=== PATIENT | male | born 1995 | race African-American/Black ===

== ENCOUNTER 2023-12-13 01:55 | Emergency (ER) | payer SELFPAY ==
[2023-12-13 02:00] VITALS: BP 135/81; PULSE 54; TEMP 36.7; BMI 21.3
--- NOTE | 2023-12-13 02:10 | ED_ITS ---
HPI - Chest Pain General Chief Complaint: Chest Pain Stated Complaint: chest/cardio pain Time Seen by Provider: 12/13/23 02:06 Source: patient Mode of arrival: walk-in Limitations: no limitations History of Present Illness HPI narrative: presents complaining of acute onset of chest pain that started about one hour ago. Pain is pleuritic. No injury to his chest. Not short of breath. No fever. No nausea Related Data Home Medications ?Medication ?Instructions ?Recorded ?Confirmed No Known Home Medications 12/13/23 12/13/23 Allergies Allergy/AdvReac Type Severity Reaction Status Date / Time No Known Drug Allergies Allergy Verified 12/13/23 01:59 Review of Systems ROS Status of ROS 10 or more systems reviewed and unremark able except as noted in history and below PFSH PFSH Social History Little interest or pleasure in doing things: not at all Feeling down, depressed, or hopeless: not at all Exam Constitutional Vital Signs, click to edit/add: Last Vital Signs Temp 98.0 F 12/13/23 02:00 Pulse 54 L 12/13/23 02:00 Resp 18 12/13/23 02:00 BP 135/81 12/13/23 02:00 O2 Del Method Room Air 12/13/23 02:00 Common normals: no apparent distress, average body habitus, oriented x3, no limitations, healthy appearing, alert and well nourished [facility] Common normals: normocephalic, head/scalp atraumatic and hearing grossly normal bilaterally Eye Common normals: PERRL and EOMs intact bilaterally Chest Common normals: inspection of chest normal Respiratory Common normals: normal respiratory effort, no retractions, no use of accessory muscles and clear to auscultation bilaterally Cardio Common normals: regular rate, regular rhythm, S1 normal heart sound and S2 normal heart sound GI Common normals: Normal to inspection, nondistended, normoactive bowel sounds present, soft to palpation and non-tender Extremity Common normals: normal to inspection and full ROM Neuro Common normals: oriented x3, CN's II-XII intact bilaterally and moves all extremities Psych Appearance: grossly normal Course Vital Signs Vital signs: Vital Signs Temperature 98.0 F 12/13/23 02:00 Pulse Rate 54 L 12/13/23 02:00 Respiratory Rate 18 12/13/23 02:00 Blood Pressure 135/81 12/13/23 02:00 Oxygen Delivery Method Room Air 12/13/23 02:00 Temperature 98.0 F 12/13/23 02:00 Pulse Rate 54 L 12/13/23 02:00 Respiratory Rate 18 12/13/23 02:00 Blood Pressure 135/81 12/13/23 02:00 Oxygen Delivery Method Room Air 12/13/23 02:00 MDM - Chest Pain MDM Narrative Medical decision making narrative: patient presents with acute onset of pleuritic left sided chest pain. Neg dyspnea but avoids taking deep breath because of pain. Mild chest wall tenderness. No crepitus. cxray normal. serial troponin neg and d-dimer neg. EKG with sinus bradycardia. Pain improved after Toradol and he is now able to take a deep breath.Discharged home with working diagnosis of musculoskeletal chest pain. Discharged with a prescription of Toradol Lab Data Labs: Lab Results 12/13/23 12/13/23 Range/Units 02:05 04:15 WBC 9.7 (4.0-11.0) 10^3/uL RBC 4.17 L (4.70-6.10) 10^6/uL Hgb 14.0 (14.0-18.0) g/dL Hct 40.8 L (42.0-54.0) % MCV 97.8 H (80.0-94.0) fL MCH 33.6 (25.9-34.0) pg MCHC 34.3 (29.9-35.2) g/dL RDW 12.8 (11.0-15.0) % Plt Count 286 (150-450) 10^3/uL MPV 9.0 L (9.5-13.5) fL Neut % (Auto) 52.5 (43.0-75.0) % Lymph % (Auto) 37.1 (20.5-60.0) % Miller % (Auto) 8.5 (1.7-12.0) % Eos % (Auto) 1.6 (0.9-7.0) % Baso % (Auto) 0.1 L (0.2-2.0) % Neut # (Auto) 5.1 (1.4-6.5) 10^3/uL Lymph # (Auto) 3.6 (1.2-3.8) 10^3/uL Miller # (Auto) 0.8 (0.3-0.8) 10^3/uL Eos # (Auto) 0.2 (0.0-0.7) 10^3/uL Baso # (Auto) 0.0 (0.0-0.1) 10^3/uL Abs Immat Gran (auto) 0.02 (0.00-0.03) 10^3/uL Imm/Tot Granulo (auto) 0.2 (0.0-0.5) % D-Dimer <0.19 (<=0.59) mg/L FEU Sodium 141 (136-145) mmol/L Potassium 3.4 L (3.5-5.1) mmol/L Chloride 104 (98-107) mmol/L Carbon Dioxide 28.3 (21.0-32.0) mmol/L Anion Gap 12.1 BUN 15.0 (7.0-18.0) mg/dL Creatinine 1.24 (0.70-1.30) mg/dL Est GFR ( Amer) >60 (>=60 mL/min/1.73m^2) Est GFR (Non-Af Amer) >60 (>=60 mL/min/1.73m^2) BUN/Creatinine Ratio 12.1 Glucose 94 (74-106) mg/dL Calcium 8.8 (8.5-10.1) mg/dL Troponin I High Sens 4.1 4.2 (4.0-76.1) pg/mL Discharge Plan Discharge Chief Complaint: Chest Pain Clinical Impression: Acute chest wall pain Patient Disposition: Home, Self-Care Prescriptions / Home Meds: No Action No Known Home Medications Print Language: Japanese Instructions: Chest Wall Pain (ED) Referrals: Waldemar Jones MD [Primary Care Provider] - 1 week
--- NOTE | 2023-12-13 02:11 | XR_ITS ---
The [address] [address] Patient Name: VAISHNAVI ANDERSON MRN: [id number] date: 1995 Sex: M Assigned Patient Location: ER Current Patient Location: ER Accession/Order Number: [id number] Exam Date: 12/13/2023 02:23 Report Date: 12/13/2023 04:02 At the request of: MARISEL DEJESUS Procedure: XR chest 1V EXAM: XR chest 1V HISTORY: Chest pain. COMPARISON: None. TECHNIQUE: AP erect portable chest radiograph performed. FINDINGS: The trachea is midline. The cardiomediastinal silhouette and hilar shadows are within normal limits. There is no consolidation, pleural effusion or pulmonary vascular congestion. There is no pneumothorax or osseous abnormality. XR/XR chest 1V IMPRESSION: Unremarkable AP erect portable chest radiograph. Electronically authenticated by: JIM MACK Date: 12/13/2023 04:02
--- NOTE | 2023-12-13 02:13 | ECG_ITS ---
The [facility] Test Date: 2023-12-13 Pat Name: Tal Hogan Department: Room: - Gender: Male Paste Up Artist: : 1995 Requested By: TYRONE MCGARRY Order Number: [id number] Reading MD: OSMAR BOWSER Measurements Intervals [place] Rate: 52 P: 63 RI: 186 QRS: 81 QRSD: 84 T: 65 QT: 456 QTc: 435 Interpretive Statements 1100 Sinus rhythm 2420 RSR (QR) in lead V1/V2, consistent with right ventricular conduction delay 46069 Early repolarization 9130 borderline ECG No previous ECG available for comparison Electronically Signed On 12-13-2023 23:23:43 EDT by OSMAR BOWSER
[2023-12-13 02:20] LABS: Basophils Percent Auto 0.1 % (0.2-2.0); Eosinophils Absolute Auto 0.2 10^3/uL (0.0-0.7); Eosinophils Percent Auto 1.6 % (0.9-7.0); Hematocrit 40.8 % (42.0-54.0); Immature Granulocytes Abs Auto 0.02 10^3/uL (0.00-0.03); Immature Granulocytes Pct Auto 0.2 % (0.0-0.5); Lymphocytes Absolute Auto 3.6 10^3/uL (1.2-3.8); Lymphocytes Percent Auto 37.1 % (20.5-60.0); Mean Corpuscular HGB Conc 34.3 g/dL (29.9-35.2); Mean Corpuscular Hemoglobin 33.6 pg (25.9-34.0); Mean Corpuscular Volume 97.8 fL (80.0-94.0); Monocytes Absolute Auto 0.8 10^3/uL (0.3-0.8); Monocytes Percent Auto 8.5 % (1.7-12.0); Neutrophils Absolute Auto 5.1 10^3/uL (1.4-6.5); Neutrophils Percent Auto 52.5 % (43.0-75.0); Platelet Count 286 10^3/uL (150-450); Red Blood Count 4.17 10^6/uL (4.70-6.10); Red Cell Distribution Width 12.8 % (11.0-15.0); White Blood Count 9.7 10^3/uL (4.0-11.0)
[2023-12-13 02:43] LABS: Anion Gap 12.1; BUN Creatinine Ratio 12.1; Calcium 8.8 mg/dL (8.5-10.1); Carbon Dioxide 28.3 mmol/L (21.0-32.0); Chloride 104 mmol/L (98-107); Estimated GFR (African America >60 (>=60 mL/min/1.73m^2); Estimated GFR (Non-African Ame >60 (>=60 mL/min/1.73m^2); Glucose 94 mg/dL (74-106); Potassium 3.4 mmol/L (3.5-5.1); Sodium 141 mmol/L (136-145); Troponin I High Sensitivity 4.1 pg/mL (4.0-76.1)
[2023-12-13 03:04] LABS: D Dimer <0.19 mg/L FEU (<=0.59)
[2023-12-13] MEDS: KETOROLAC TROMETHAMINE 30 MG/ML VIAL IVP (03:29)
[2023-12-13 04:36] LABS: Troponin I High Sensitivity 4.2 pg/mL (4.0-76.1)
== END 2023-12-13 05:03 | disposition home or self-care (01) ==
PROVIDERS: Emergency Provider Internal Medicine; PCP Family Medicine
DX: R07.89 Other chest pain (principal)
CPT/HCPCS: 36415; 71045; 80048; 84484; 85025; 85378; 93005; 96374; 99285; J1885

== ENCOUNTER 2024-10-22 15:11 | Outpatient (OUT) | payer MEDICARE, MEDICAID, SELFPAY ==
--- OUTSIDE RECORDS SUMMARY | 2017-02-09 07:32 | XMS_ITS | Continuity of Care Document ---
Author Organization [facility] Address [address] [place] [address] Phone Care Team Providers Care Knife Blade Polisher Name Role Phone Bran Cordero Unavailable Unavailable Procedures Procedure Date IMMUNIZATION ADMIN TDAP VACCINE >7 IM Advance Directives Directive Yes / No Effective Date File Name No Information Encounters Encounter Description Practice Location Reason(s) For Visit Diagnoses Date Provider Providers Copied on Encounter [facility], [address], [place], [id number], tel:[phone] [facility] No Information Russel Kimball. [address], [place], [id number], [place]. tel:[phone] [facility], [address] [place] [address], [id number], [place] tel:[phone] [facility] No Information Russel Kimball. [address], [place], [id number], [place]. tel:[phone] Family History Family Member Type Diagnosis Age At Onset No Information Immunizations Vaccine Date Status Comments Tdap (Boostrix) administered Source: New Immunization Record Payers Payer name Insurance type Covered democrat ID Authoriza tion(s) [place] Ad[employer] Medicaid MC [id number] Medicaid Wrap - [facility] MC [id number] [facility] Advantage Medicaid MC [id number] Medicaid Wrap - [facility] MC [id number] Social History Type Description Quantity Date Captured Comments Sex Male Smoking Status No Information Chief Complaint And Reason For Visit No Information Reason For Referral Reason For Referral No Information History Of Present Illness Encounter Date Complaint History Of Prese nt Illness No Information Functional Status Date Functional Assessmen t No Information Instructions Date Instruction Additional Infor mation No Information Assessments Type Assessment Date No Information Patient Care Teams Name Effective Dates (start - stop) Status Members No Information
--- OUTSIDE RECORDS SUMMARY | 2024-09-20 11:15 | XMS_ITS ---
Author Organization The [facility] [place] Address [address] [place] [address] Care Team Providers Care Director Of Personnel Name Role Phone Washington Jones Primary Care Provider [phone] Allergies No Known Allergies REASON FOR VISIT Presents to office alone for a work physical Medications Medication SIG (Take, Route, Frequency, Duration) Notes Start Date End Date Status Albuterol Sulfate HFA 108 (90 Base) MCG/ACT 2 puff as needed Inhalation every 4 hrs Active risperiDONE 0.5 MG 1 tablet Orally Once a day for 30 days Active Social History Tobacco Use: Social History Observation Description Date Details (start date - stop date) Current Smoker 02/13/2009 - NA Tobacco Use/Smoking Question Answer Notes Patient is a current smoker When did you start smoking? 02/13/2009 How often do you smoke cigarettes? every day How many cigarettes a day do you smoke? 11-20 AUDIT-C (Standard) Question Answer Notes Did you have a drink containing alcohol in the p ast year? No Points 0 Interpretation Negative Problems Problem Type SNOMED Code ICD Code Onset Dates Problem Status W/U Status Risk Notes Problem Well adult (402899185) Well adult (Z00.00) Active confirmed Vital Signs Weight 141.4 lbs 09/20/2024 Height 66 in 09/20/2024 Blood pressure systolic 92 mm Hg 09/21/19 25 Blood pressure diastolic 50 mm Hg 025 BMI 22.82 kg/m2 09/20/2024 Encounters Encounter Location Date Provider Diagnosis [facility] [address] [place] [address] 09/20/2024 Washington Jones Well adult Z00.0 0 Assessments Encounter Date Diagnosis (ICD Code) Assessment Notes Treatment Notes Treatment Clinical Notes Section Notes 09/20/2024 Well adult (ICD-10 - Z00.00) Plan Of Treatment Medication Medication Name Sig Start Date Stop Date Notes Albuterol Sulfate HFA 108 (9 0 Base) MCG/ACT 2 puff as needed Inhalation every 4 hrs risperiDONE 0.5 MG 1 tablet Orally Once a day for 30 days Progress Notes * Tal ANDERSON ADOB: [birth year] (29 yo M)Acc No.[id number]:09/20/2024 Progress Note Patient: Tal BUNDY Provider: Perry Jones ([facility])MD :1995 A ge:29 Y S ex:Male Date:09/20/2024 Address:[address] [place] [address] , [place], [id number] Check In:03:11 PM ESTCheck O ut:03:57 PM EST Subjective: * Chief Complaints: * P resents to office alone for a work physical * HPI: G eneral: heerfor work physical. D epression Screening: PHQ-9 L ittle interest or pleasure in doing things?Several days F eeling down, depressed, or hopeless S everal days T rouble falling or staying asleep, or sleeping too much S everal days F eeling tired or having little energy S everal days P oor appetite or overeating S everal days F eeling bad about yourself or that you are a failure, or have let yourself or your family down N ot at all T rouble concentrating on things, such as reading the newspaper or watching television N ot at all M oving or speaking so slowly that other people could have noticed; or the opposite, being so fidgety or restless that you have been moving around a lot more than usual N ot at all T houghts that you would be better off or of hurting yourself in some way N ot at all T otal Score 5 I nterpretation M ild Depression * ROS: E ENT: hearing changes d enies. v isual changes d enies.?non-healing mouth sores d enies. s wollen glands or neck lumps d enies. h oarseness d enies. s ore throat d enies. d ifficulty swallowing d enies. n ose bleeds d enies. n hyun congestion d enies. e ar ache d enies. e ar discharge?denies. r inging in ears d enies. l ight sensitivity d enies. e ye pain d enies. b lurring d enies. e ye irritation d enies. d ouble vision d enies.?vision loss d enies. G eneral/Constitutional: Sweats: D enies. F atigue d enies. S leep problems d enies. A norexia d enies. M alaise d enies. W eight loss d enies.?Fatigue or Weakness d enies. F ever or Chills d enies. C ardiovascular: Shortness of Breath w/lying flat d enies. L ightheadedness/dizziness d enies. C hest tightness/ heavy pressure d enies. S welling of legs, ankles, or feet d enies. W aking up with shortness of breath d enies. C hest pain denies. P alpitations d enies. W eight gain d enies. R espiratory: Chronic or frequent cough d enies. C oughing up blood?denies. D ifficulty breathing d enies. P roductive cough d enies. S noring?denies. S hortness of breath that awakens from sleep (PND) d enies. C hest pain d enies. S putum production d enies. W heezing d enies. M usculoskeletal: Joint pain d enies. J oint Fluid d enies. B ack pain d enies. K nee pain d enies. N guillaume pain d enies. J oint Stiffness d enies. M uscle cramps d enies. W eakness of muscles d enies. A rthritis d enies. M uscle aches d enies. P ain in shoulder(s) d enies. S wollen joints d enies. * Active Problem List F41.9 Anxiety Modified On:12/08/2022/U Status:confirmed F32.9 Depression Modified On:12/08/2022/U Status:confirmed Z00.00 Well adult Modified On:09/20/2024/U Status:confirmed * Medical History: * Surgical History: * Hospitalization/Major Diagno stic Procedure: * Family History: F ather: alive. M other: alive, anxiety, diagnosed with Diabetes mellitus without mention of complication, type II or unspecified type, not stated as uncontrolled, Unspecified essential hypertension, Anxiety. S ister(s): alive, epilepsy, diagnosed with Diabetes mellitus without mention of complication, type II or unspecified type, not stated as uncontrolled, Unspecified essential hypertension. D ryne(s): alive. 2 daughter(s) . . Patient states he has 27 siblings. * Social History: T obacco Use: T obacco Use/Smoking P atient is a c urrent smoker W hen did you start smoking? 0 02/13/2009 H ow often do you smoke cigarettes? e very day H ow many cigarettes a day do you smoke? 1 1-20 D rug/Alcohol: A JOHN-C (Standard) D id you have a drink containing alcohol in the past year? N o P oints 0 I nterpretation N egative * Medications: T akingAlbuterol Sulfate HFA 108 (90 Base) MCG/ACT Aerosol Solution 1 puff as needed Inhalation every 4 hrs risperiDONE 2 MG Tablet 1 tablet Orally Once a day Medication List reviewed and reconciled with the patientTaking Albuterol Sulfate HFA 108 (90 Base) MCG/ACT Aerosol Solution 1 puff as needed Inhalation every 4 hrs Taking risperiDONE 2 MG Tablet 1 tablet Orally Once a day Medication List reviewed and reconciled with the patient * Allergies: N .K.D.A.no[Allergies Verified] Objective: * Vitals: W t:141.4lbs, Ht: 66 in, BP:92/50mm Hg, BMI:22.82Index, Ht-cm: 167.64 cm, Wt-k.14 kg. * Examination: P hysical Exam: GENERAL: w ell developed, well nourished, in no acute distress. HEAD: n ormocephalic/atraumatic. EYES: p upils equal, round and reactive to light, conjunctivae and sclerae normal. EARS: n o deformity or lesion of external ear, canals and TM appear normal bilaterally, TM's intact, not inflamed with normal light reflex, hearing grossly normal to conversational speech. NOSE: n o deformity, discharge, inflammation, or lesions.? MOUTH: m ucous membranes moist, normal oropharynx and posterior pharynx without lesions or exudates, tongue normal, dentition normal. NECK: n guillaume supple, no masses or palpable cervical nodes, trachea midline, thyroid without nodules, masses, tenderness, or enlargement. CHEST: n o chest wall deformity, no chest wall tenderness.? LUNGS: n ormal respiratory effort and clear to auscultation, no wheezes, rales, or rhonchi, good air exchange. CARDIO: r egular rate and rhythm, normal S1 and S2, nor murmur, rub, or gallop. PULSES: n ormal capillary refill. ABDOMEN: s oft, non-distended, non-tender, no masses. MUSCULOSKELETAL: n o deformity or scoliosis noted, normal range of motion, joints normal, no erythema, edema, effusion, or ecchymosis. EXTREMITY: n o clubbing, cyanosis, edema, or deformity with normal ROM in both upper and lower bilateral extremities. NEUROLOGIC: g rossly normal. SKIN: n o rashes, ulcerations, or suspicious lesions. LYMPH NODES: n o cervical adenopathy, nodes normal. MENTAL STATUS: a lert and oriented x3, normal mood and affect. Assessment: * Assessment: 1. W [facility] adult - Z00.00 (Primary) Plan: * Treatment: * Procedure Codes: * * Sign off status: Completed Visit Status: C HK (Check Out) true * Provider: Perry Jones ([facility])MD Date: 0 09/20/2024 Generated for Jenni abdullahi/Ricardo/eTransmitting on: 0 10/22/2024 03:15 PM EDT History and Physical Notes * HPI (History of Present Illness) Category Sub-Category Detail Notes Category Not es Depression Screening PHQ-9 Little inte rest or pleasure in doing things: Several days Feeling down, depressed, or hopeless: Se veral days Trouble falling or staying asleep, or sl eeping too much: Several days Feeling tired or having little energy: S everal days Poor appetite or overeating: Several day s Feeling bad about yourself o r that you are a failure, or have let yourself or your family down: Not at all Trouble concentrating on thi ngs, such as reading the newspaper or watching television: Not at all Moving or speaking so slowly that other people could have noticed; or the opposite, being so fidgety or restless that you have been moving around a lot more than usual: Not at all Thoughts that you would be b miri off or of hurting yourself in some way: Not at all Total Score: 5 Interpretation: Mild Depression General heerfor work ph ysical Examination Category Sub-Category Detail Notes Category Not es Physical Exam GENERAL: well developed, well nourished, in no acute distress HEAD: normocephalic/atraum atic EYES: pupils equal, round and reactive to light, conjunctivae and sclerae normal EARS: no deformity or lesi on of external ear, canals and TM appear normal bilaterally, TM's intact, not inflamed with normal light reflex, hearing grossly normal to conversational speech NOSE: no deformity, discha rge, inflammation, or lesions MOUTH: mucous membranes kir[address] st, normal oropharynx and posterior pharynx without lesions or exudates, tongue normal, dentition normal NECK: neck supple, no mass es or palpable cervical nodes, trachea midline, thyroid without nodules, masses, tenderness, or enlargement CHEST: no chest wall deform ity, no chest wall tenderness LUNGS: normal respiratory e ffort and clear to auscultation, no wheezes, rales, or rhonchi, good air exchange CARDIO: regular rate and rhy thm, normal S1 and S2, nor murmur, rub, or gallop PULSES: normal capillary ref ill ABDOMEN: soft, non-distended, non-tender, no masses RECTAL: MUSCULOSKELETAL: no deformity or scol iosis noted, normal range of motion, joints normal, no erythema, edema, effusion, or ecchymosis EXTREMITY: no clubbing, cyanosi s, edema, or deformity with normal ROM in both upper and lower bilateral extremities NEUROLOGIC: grossly normal SKIN: no rashes, ulceratio ns, or suspicious lesions LYMPH NODES: no cervical adenopat hy, nodes normal MENTAL STATUS: alert and oriented x 3, normal mood and affect
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
--- OUTSIDE RECORDS SUMMARY | 2024-10-22 15:15 | XMS_ITS | Patient Health Record ---
Author Organization [facility] in [place] Address [address] [place] [address] Care Team Providers Care Internet Sales Representative Name Role Phone Washington Mcgarry Primary Care Provider [phone] Allergies No Known Allergies Results Component Value Reference Range Notes CBC AUTO DIFF Reviewed date:12/13/2023 06:33:21 PM Interpretation: Performing Lab: Notes/Report: [facility] , White Blood Count 9.7 4.0-11.0 10 3/uL Red Blood Count 4.17 4.70-6.10 10 6/uL Hemoglobin 14.0 14.0-18.0 g/dL Hematocrit 40.8 42.0-54.0 % Mean Corpuscular Volume 97.8 80.0-94.0 fL Mean Corpuscular Hemoglobin 33.6 25.9-34.0 pg Mean Corpuscular HGB Conc 34.3 29.9-35.2 g/dL Red Cell Distribution Width 12.8 11.0-15.0 % Platelet Count 286 150-450 10 3/uL Mean Platelet Volume 9.0 9.5-13.5 fL Neutrophils Percent Auto 52.5 43.0-75.0 % Lymphocytes Percent Auto 37.1 20.5-60.0 % Monocytes Percent Auto 8.5 1.7-12.0 % Eosinophils Percent Auto 1.6 0.9-7.0 % Basophils Percent Auto 0.1 0.2-2.0 % Immature Granulocytes Pct Auto 0.2 0.0-0.5 % Neutrophils Absolute Auto 5.1 1.4-6.5 10 3/uL Lymphocytes Absolute Auto 3.6 1.2-3.8 10 3/uL Monocytes Absolute Auto 0.8 0.3-0.8 10 3/uL Eosinophils Absolute Auto 0.2 0.0-0.7 10 3/uL Basophils Absolute Auto 0.0 0.0-0.1 10 3/uL Immature Granulocytes Abs Auto 0.02 0.00-0.03 10 3/uL Performing Lab: see note ML - [facility] LB D-DIMER Reviewed date:12/13/2023 06:33:21 PM Interpretation: Performing Lab: Notes/Report: [facility] , D Dimer <0.19 <=0.59 mg/L FEU Increases in D-Dimer concentration observed with thromboembolic events can be variable due to localization, size, and age of the thrombus. Therefore, a thromboembolic event cannot be diagnosed with certainty on the basis of the reference range. D-Dimers may also be elevated for a variety of disorders including advanced age, , coronary disease, cancer, liver disease, infection, inflammation, hematoma, DIC, trauma, post-surgery, diabetes, thrombolytic or anticoagulant therapy, stress, and generalized hospitalization. Performing Lab: see note ML - [facility] LB PROF CHEM 8 (BAS METB) Reviewed date:12/13/2023 06:33:21 PM Interpretation: Performing Lab: Notes/Report: [facility] , Sodium 141 136-145 mmol/L Potassium 3.4 3.5-5.1 mmol/L Chloride 104 98-107 mmol/L Carbon Dioxide 28.3 21.0-32.0 mmol/L Anion Gap 12.1 Glucose 94 74-106 mg/dL Blood Urea Nitrogen 15.0 7.0-18.0 mg/dL Creatinine 1.24 0.70-1.30 mg/dL Estimated GFR ( Eri >60 >=60 mL/min/1.73m 2 Estimated GFR (Non- Nila >60 >=60 mL/min/1.73m 2 BUN Creatinine Ratio 12.1 Calcium 8.8 8.5-10.1 mg/dL Performing Lab: see note ML - [facility] Troponin I High Sensitivity Reviewed date:12/13/2023 06:33:21 PM Interpretation: Performing Lab: Notes/Report: [facility] , Troponin I High Sensitivity 4.1 4.0-76.1 pg/mL CUT-OFF POINTS HAVE BEEN ESTABLISHED BASED ON THE FOURTH UNIVERSAL DEFINITION OF MYOCARDIAL INFARCTION. THE UPPER REFERENCE LIMIT (URL) OF TROPONIN, DEFINED THE 99TH PERCENTILE OF cTnI DISTRIBUTION IN A REFERENCE POPULATION, HAS BEEN CONFIRMED THE DECISION THRESHOLD FOR AR DIAGNOSIS. 99TH PERCENTILE = 76.2 PG/ML NOTE: HIGH-SENSITIVITY TROPONIN ASSAY IS NOT INTENDED TO BE USED IN ISOLATION BUT SHOULD BE INTERPRETED IN CONJUNCTION WITH OTHER DIAGNOSTIC AND CLINICAL INFORMATION. Performing Lab: see note ML - [facility] LB ECG 12 lead Reviewed date:12/14/2023 08:42:26 PM Interpretation: Performing Lab: Notes/Report: Source Facility: [place] [address] [place] [address] Electrocardiograph Report Signed Patient: TAL ANDESRON MR#: [id number] : 1995 Acct:[id number] Age/Sex: 28 / M ADM Date: 12/13/23 Loc: ER Attending Dr: Ordering Physician: Rc Dejesus Date of Service: 12/13/23 Procedure(s): ECG 12 lead Accession Number(s): [id number] cc: [facility] Test Date: 2023-12-13 Pat Name: Tal Anderson Department: Room: - Gender: Male Distillation Operator: : 1995 Requested By: TYRONE MCGARRY Order Number: [id number] Reading MD: RAMOS BOWSER Measurements Intervals Mineral Rate: 52 P: 63 [place]: 186 QRS: 81 QRSD: 84 T: 65 QT: 456 QTc: 435 Interpretive Statements 1100 Sinus rhythm 2420 RSR (QR) in lead V1/V2, consistent with right ventricular conduction delay 45229 Early repolarization 9130 borderline ECG No previous ECG available for comparison Electronically Signed On 12-13-2023 23:23:43 EDT by RAMOS BOWSER Dictated By: Ramos Bowser D.O. Signed By: 12/13/236 DD/ 0202 TD/TT: [facility]: [place] [address] Electrocardiograph Report Signed Patient: JAIRO ANDERSON MR#: [id number] : 1995 Acct:[id number] Age/Sex: 28 / M ADM Date: 12/13/23 Loc: ER Attending Dr: Ordering Physician: Rc Dejesus Date of Service: 12/13/23 Procedure(s): ECG 12 lead Accession Number(s): [id number] cc: [facility] Test Date: 2023-12-13 Pat Name: Tal mccurdy Department: 65 Room: - Gender: Male Distillation Operator: : 1995 Requ ested By: TYRONE MCGARRY Order Number: [id number] Reading MD: RAMOS BOWSER Measurements Intervals Mineral Rate: 52 P: 63 AZ: 186 QRS: 81 QRSD: 84 T: 65 QT: 456 QTc: 435 Interpretive Statements 1100 Sinus rhythm 2420 RSR (QR) in rissa d V1/V2, consistent with right ventricular conduction delay 98433 Early repolarization 9130 borderline ECG No previous ECG avai lable for comparison Electronically Cat d On 12-13-2023 23:23:43 EDT by RAMOS BOWSER Dictated By: Ramos Bowser D.O. Signed By: 12/13/23 232 DD/ 0202 TD/TT: [facility]: SKY chest 1V Reviewed date:12/13/2023 06:33:21 PM Interpretation: Performing Lab: Notes/Report: Source Facility: [place] [address] XRay Report Signed Patient: Tal Anderson MR#: [id number] : 1995 Acct:[id number] Age/Sex: 28 / M ADM Date: 12/13/23 Loc: ER Attending Dr: Ordering Physician: Rc Dejesus Date of Service: 12/13/23 Procedure(s): XR chest 1V Accession Number(s): [id number] cc: Tyrone Bliss M.D. [place] [address] Patient Name: TAL ANDERSON MRN: [facility]:[id number] date: 1995 Sex: M Assigned Patient Location: ER Current Patient Location: ER Accession/Order Number: [id number] Exam Date: 12/13/2023 02:23 Report Date: 12/13/2023 04:02 At the request of: RC DEJESUS Procedure: XR chest 1V EXAM: XR chest 1V HISTORY: Chest pain. COMPARISON: None. TECHNIQUE: AP erect portable chest radiograph performed. FINDINGS: The trachea is midline. The cardiomediastinal silhouette and hilar shadows are within normal limits. There is no consolidation, pleural effusion or pulmonary vascular congestion. There is no pneumothorax or osseous abnormality. XR/XR chest 1V IMPRESSION: Unremarkable AP erect portable chest radiograph. Electronically authenticated by: JIM COTTER Date: 12/13/2023 04:02 Dictated By: Jim Cotter M.D. Signed By: 12/13/23403 DD/ 1 TD/TT: [facility]: [place] [address] XRay Report Signed Patient: Jairo Anderson MR#: [id number] : 1995 Acct:[id number] Age/Sex: 28 / M ADM Date: 12/13/23 Loc: ER Attending Dr: Ordering Physician: Rc Dejesus Date of Service: 12/13/23 Procedure(s): XR chest 1V Accession Number(s): [id number] cc: Rc Dejesus; Tyrone Mcgarry M.D. [facility] [place] [id number] Patient Name: TAL ANDERSON MRN: [id number] date: 1995 Sex: M Assigned Patient Location: ER Current Patient Loca tion: ER Accession/Order Numb er: [id number] Exam Date: 02:23 Report Date: 12/13/2023 04:02 At the request of: RC DEJESUS Procedure: XR chest 1V EXAM: XR chest 1V HISTORY: Chest pain. COMPARISON: None. TECHNIQUE: AP erect portable chest radiograph performed. FINDINGS: The trachea is midli ne. The cardiomediastinal silhouette and hilar shadows are within normal limits . There is no consolidation, pleural effusion or pulmonary vascular congestion. There is no pneumothorax or osseous abnormality. X R/XR chest 1V IMPRESSION: Unremarkable AP erec t portable chest radiograph. Electronically authenticated by: JIM COTTER Date: 12/13/2023 04:02 Dictated By: Jim Cotter M.D. Signed By: 12/13/23403 DD/ 1 TD/TT: [facility]: Troponin I High Sensitivity Reviewed date:12/13/2023 06:33:21 PM Interpretation: Performing Lab: Notes/Report: [facility] , Troponin I High Sensitivity 4.2 4.0-76.1 pg/mL CUT-OFF POINTS HAVE BEEN ESTABLISHED BASED ON THE FOURTH UNIVERSAL DEFINITION OF MYOCARDIAL INFARCTION. THE UPPER REFERENCE LIMIT (URL) OF TROPONIN, DEFINED THE 99TH PERCENTILE OF cTnI DISTRIBUTION IN A REFERENCE POPULATION, HAS BEEN CONFIRMED THE DECISION THRESHOLD FOR AR DIAGNOSIS. 99TH PERCENTILE = 76.2 PG/ML NOTE: HIGH-SENSITIVITY TROPONIN ASSAY IS NOT INTENDED TO BE USED IN ISOLATION BUT SHOULD BE INTERPRETED IN CONJUNCTION WITH OTHER DIAGNOSTIC AND CLINICAL INFORMATION. Performing Lab: see note ML - [facility] LB Reason For Referral No Information Medications Medication SIG (Take, Route, Frequency, Duration) [...] cigarettes a day do you smoke? 11-20 Alcohol Screen (Audit-C) Question Answer Notes Did you have a drink contain ing alcohol in the past year? Yes How many drinks did you have on a typical day when you were drinking in the past year? 3 or 4 drinks (1 point) How often did you have a dri nk containing alcohol in the past year? Daily or almost daily (4 points) Points 5 Interpretation Positive AUDIT-C (Standard) Question Answer Notes Did you have a drink containing alcohol in the p ast year? No Points 0 Interpretation Negative Problems Problem Type SNOMED Code ICD Code Onset Dates Problem Status W/U Status Risk Notes Problem Anxiety (37788557) Anxiety (F41.9) Active confirmed Problem Depression (909571939) Depression (F32.9) Active confirmed Problem Well adult (123411305) Well adult (Z00.00) Active confirmed Problem Pain in wrist (23480823) Wrist pain, acute, left (M25.532) Active confirmed Vital Signs Temperature 98.2 degrees Fahrenheit 10/22/2024 Blood pressure diastolic 60 mm Hg 10/22/2024 Height 66 in 10/22/2024 Blood pressure systolic 104 mm Hg 10/22/2024 Weight 136 lbs 10/22/2024 BMI 21.95 kg/m2 10/22/2024 Encounters Encounter Location Date Provider Diagnosis [facility] [address] [place] [address] 09/20/2024 Washington Hoy Well adult Z00.00 [facility] [address] [place] [address] 10/22/2024 [place] Hoy Wrist pain, acute, left M25.532 Assessments Encounter Date Diagnosis (ICD Code) Assessment Notes Treatment Notes Treatment Clinical Notes Section Notes 09/20/2024 Well adult (ICD-10 - Z00.00) 10/22/2024 Wrist pain, acute, left (ICD-10 - M25.532) Plan Of Treatment Pending Test Test Name Order Date XR ELBOW 1-2 VIEWS LEFT 10/22/2024 XR wrist LT min 3V 10/22/2024 XR RADIUS ULNA LEFT (2 VIEWS) 10/22/2024 Insurance Providers Payer Name Payer Address Payer Phone Subscriber Number Group Number Insured Name Patient Relationship to Insured Coverage Start Date Coverage End Date [employer] [place] [employer] [address] [address] [place] [phone] [id number] Tal Anderson Self - patient is the insured Medical (General) History Medical History History ICD Code Testicular mass N50.89 Black stool K92.1 Other acute pancreatitis with uninfected necrosis K85.81 Acute internal derangement of right knee M23.91 Suicidal thoughts R45.851 Bipolar 1 disorder F31.9 Gastritis K29.70 Asperger syndrome F84.5 ADHD F90.9 Eczema L30.9 Insomnia G47.00
--- NOTE | 2024-10-22 15:22 | XR_ITS ---
The [place] [id number] Patient Name: VAISHNAVI ANDERSON MRN: [id number] date: 1995 Sex: M Assigned Patient Location: RAD Current Patient Location: [facility] Accession/Order Number: [id number] Exam Date: 10/22/2024 15:25 Report Date: 10/22/2024 22:31 At the request of: TYRONE MCGARRY MD Procedure: XR elbow LT min 3V 2 VIEWS LEFT FOREARM/3 VIEWS LEFT WRIST AND 3 VIEWS LEFT ELBOW CLINICAL HISTORY: Acute Left Wrist Pain COMPARISON: None FINDINGS: No fracture or dislocation. Joint spaces preserved. Soft tissues unremarkable. XR/XR wrist LT min 3V IMPRESSION: NO ACUTE OSSEOUS FINDINGS. Impression dictated by: Aston Calhoun M.D. 10/22/2024 10:31 PM Dictation Location: [place] [address] Electronically authenticated by: [id number] Y Date: 10/22/2024 22:31
--- NOTE | 2024-10-22 15:22 | XR_ITS ---
The [place] [id number] Patient Name: VAISHNAVI ANDERSON MRN: [id number] date: 1995 Sex: M Assigned Patient Location: RAD Current Patient Location: [facility] Accession/Order Number: [id number] Exam Date: 10/22/2024 15:25 Report Date: 10/22/2024 22:31 At the request of: TYRONE MCGARRY MD Procedure: XR elbow LT min 3V 2 VIEWS LEFT FOREARM/3 VIEWS LEFT WRIST AND 3 VIEWS LEFT ELBOW CLINICAL HISTORY: Acute Left Wrist Pain COMPARISON: None FINDINGS: No fracture or dislocation. Joint spaces preserved. Soft tissues unremarkable. XR/XR forearm LT 2V IMPRESSION: NO ACUTE OSSEOUS FINDINGS. Impression dictated by: Aston Calhoun M.D. 10/22/2024 10:31 PM Dictation Location: [place] [address] Electronically authenticated by: [id number] Y Date: 10/22/2024 22:31
--- NOTE | 2024-10-22 15:22 | XR_ITS ---
The [place] [id number] Patient Name: VAISHNAVI ANDERSON MRN: [id number] date: 1995 Sex: M Assigned Patient Location: RAD Current Patient Location: [facility] Accession/Order Number: [id number] Exam Date: 10/22/2024 15:25 Report Date: 10/22/2024 22:31 At the request of: TYRONE MCGARRY MD Procedure: XR elbow LT min 3V 2 VIEWS LEFT FOREARM/3 VIEWS LEFT WRIST AND 3 VIEWS LEFT ELBOW CLINICAL HISTORY: Acute Left Wrist Pain COMPARISON: None FINDINGS: No fracture or dislocation. Joint spaces preserved. Soft tissues unremarkable. XR/XR elbow LT min 3V IMPRESSION: NO ACUTE OSSEOUS FINDINGS. Impression dictated by: Aston Calhoun M.D. 10/22/2024 10:31 PM Dictation Location: [place] [address] Electronically authenticated by: [id number] Y Date: 10/22/2024 22:31
--- OUTSIDE RECORDS SUMMARY | 2024-10-22 15:24 | XMS_ITS | CCD ---
Author Organization [facility] Care Team Providers Care Manager Child Name Role Phone Tyrone Mcgarry Primary Care Physician QI MEDINA Admitting Unavailable QI MEDINA Attending Unavailable QI MEDINA Consulting Unavailable ZEFERINO, DR HANSEN Primary Care Unavailable ZEFERINO, DR HANSEN Admitting Unavailable ZEFERINO, DR HANSEN Attending Unavailable ZEFERINO, DR HANSEN Consulting Unavailable ZEFERINO, DR HANSEN Primary Care Unavailable YUN MARK Consulting Unavailable ZEFERINO, DR HANSEN Admitting Unavailable ZEFERINO, DR HANSEN Attending Unavailable ZEFERINO, DR HANSEN Consulting Unavailable ZEFERINO, DR HANSEN Primary Care Unavailable ZEFERINO, DR HANSEN Primary Care Unavailable MARISEL DEJESUS Admitting Unavailable MARISEL DEJESUS Attending Unavailable MARISEL DEJESUS Consulting Unavailable MEGHANN VELASQUEZ Consulting Unavailable Qi Zafar Unavailable Allergies Allergy Classification Reported Allergen(s) Allergy Type Date of Onset Reaction(s) Facility (1 source) risperiDONE Drug Allergy 03-20-2015 [facility] Medications Current Medications Medication Drug Class(es) Dates Sig (Normalized) Sig (Original) Albuterol (1 source) beta2-Adrenergic Agonist Albuter ol Active risperiDONE (1 source) Atypical Antipsychotic risperiDO NE Active Problems Active Problems Problem Classification Problem Date Documented Da te Episodic/Chronic Abdominal pain (6 sources) Left lower quadrant pain; Translations: [Left lower quadrant pain] Onset: 2 Episodic Asthma (1 source) Unspecified asthma, uncomplicated; Translations: [UNSPECIFIED ASTHMA UNCOMPLICATED] Onset: 2 Chronic Esophageal disorders (1 source) Gastroesophageal reflux disease; Translations: [Gastro-esophageal reflux disease without esophagitis] Chronic Gastritis and duodenitis (2 sources) Viral gastritis; Translations: [Gastritis, unspecified, without bleeding] Episodic Gastrointestinal hemorrhage (1 source) Black feces; Translations: [Melena] Episodic Intracranial injury (1 source) Personal history of traumatic brain injury; Translations: [PERSONAL HX TRAUMATIC BRAIN INJURY] Onset: 2 Episodic Nausea and vomiting (1 source) Nausea and vomiting; Translations: [Nausea with vomiting, unspecified] Episodic Other diseases of veins and lymphatics (1 source) Varicocele 07-06-2021 Episodic Other gastrointestinal disorders (1 source) Constipation alternates with diarrhea; Translations: [Other specified symptoms and signs involving the digestive system and abdomen] Episodic Other male genital disorders (2 sources) Cyst of testis; Translations: [Benign cyst of testis] Onset: 2 Episodic Other nutritional; endocrine; and metabolic disorders (1 source) Body mass index 25-29 - overweight; Translations: [Body mass index (BMI) 26.0-26.9, adult] Episodic Other nutritional; endocrine; and metabolic disorders (1 source) Weight loss; Translations: [Abnormal weight loss] Episodic Substance-related disorders (1 source) Nicotine dependence, cigarettes, uncomplicated; Translations: [NICOTINE DEPEND CIGARETTES UNCOMP] Onset: 2 Chronic Unclassified (3 sources) CONTACT W/AND (SUSP) EXPOS COVID-19; Translations: [CONTACT W/AND (SUSP) EXPOS COVID-19] Onset: 2 Past or Other Problems Problem Classification Problem Date Documented Da te Episodic/Chronic Other diseases of veins and lymphatics (1 source) Scrotal varices; Translations: [SCROTAL VARICES] Onset: 05-18-2021 Episodic Other male genital disorders (4 sources) Disorder of male genital organs, unspecified; Translations: [DISORDER MALE GENITAL ORGANS UNS] Onset: 05-18-2021 Episodic Other male genital disorders (4 sources) Other specified disorders of the male genital organs; Translations: [OTHER SPEC D/O MALE GENITAL ORGANS] Onset: 05-14-2021 Episodic Other male genital disorders (1 source) Benign cyst of testis; Translations: [BENIGN CYST OF TESTIS] Onset: 05-18-2021 Episodic Unclassified (1 source) CONTACT W/AND (SUSP) EXPOS COVID-19; Translations: [CONTACT W/AND (SUSP) EXPOS COVID-19] Onset: 06-23-2021 Unclassified (1 source) Contact with and (suspected) exposure to covid-19 Z20.822 Results Test Name Value Interpretation Reference Range Facility COVID Quick Testingon 2022 Result Negative [facility] Other AMYLASEon 01-16-2022 Amylase [Catalytic activity/Vol] 79 U/L Normal 25-115 [facility] Comment on above: Performed By: #### LIPA, CMP, KASANDRA #### [facility] [address] [place] [address] Dr. Vladimir Betts CBC AUTO DIFFon 01-16-2022 BASO # 0.0 103/ul Normal 0.0-0.1 [facility] Comment on above: Performed By: #### CBC #### [facility] [address] [place] [address] Dr. Vladimir Betts Basophils/100 WBC (Bld) 0.2 % Normal 0.2-2.0 [facility] Comment on above: Performed By: #### CBC #### [facility] [address] [place] [address] Dr. Vladimir Betts EO # 0.2 103/ul Normal 0.0-0.7 [facility] Comment on above: Performed By: #### CBC #### [facility] [address] [place] [address] Dr. Vladimir Betts Eosinophils/100 WBC (Bld) 1.6 % Normal 0.9-7.0 [facility] Comment on above: Performed By: #### CBC #### [facility] [address] [place] [address] Dr. Vladimir Betts Erythrocyte distribution width (RBC) [Ratio] 12.9 % Normal 11.0-15.0 [facility] Comment on above: Performed By: #### CBC #### [facility] [address] [place] [address] Dr. Vladimir Betts Hematocrit (Bld) [Volume fraction] 41.9 % Critically low 42.0-54.0 [facility] Comment on above: Performed By: #### CBC #### [facility] [address] [place] [address] Dr. Vladimir Betts Hemoglobin (Bld) [Mass/Vol] 15.0 g/dL Normal 14.0-18.0 [facility] Comment on above: Performed By: #### CBC #### [facility] [address] [place] [address] Dr. Vladimir Betts IG # 0.04 10e3/ul Critically high 0.00-0.03 [facility] Comment on above: Performed By: #### CBC #### [facility] [address] [place] [address] Dr. Vladimir Betts IG % 0.3 % Normal 0.0-0.5 [facility] Comment on above: Performed By: #### CBC #### [facility] [address] [place] [address] Dr. Vladimir Betts LYMPH # 2.7 103/ul Normal 1.2-3.8 [facility] Comment on above: Performed By: #### CBC #### [facility] [address] [place] [address] Dr. Vladimir Betts Lymphocytes/100 WBC (Bld) 23.1 % Normal 20.5-60.0 [facility] Comment on above: Performed By: #### CBC #### [facility] [address] [place] [address] Dr. Vladimir Betts MANUAL DIFF REQ NO Normal [facility] Comment on above: Performed By: #### CBC #### [facility] [address] [place] [address] Dr. Vladimir Betts MCH (RBC) [Entitic mass] 33.9 pg Normal 25.9-34.0 [facility] Comment on above: Performed By: #### CBC #### [facility] [address] [place] [address] Dr. Vladimir Betts MCHC (RBC) [Mass/Vol] 35.8 g/dL Critically high 29.9-35.2 [facility] Comment on above: Performed By: #### CBC #### [facility] [address] [place] [address] Dr. Vladimir Betts MCV (RBC) [Entitic vol] 94.6 fL Critically high 80.0-94.0 [facility] Comment on above: Performed By: #### CBC #### [facility] [address] [address] [address] Vladimir Betts MONO # 1.1 103/ul Critically high 0.3-0.8 [facility] Comment on above: Performed By: #### CBC #### [facility] [address] [address] [address] Vladimir Betts Monocytes/100 WBC (Bld) 9.1 % Normal 1.7-12.0 [facility] Comment on above: Performed By: #### CBC #### [facility] [address] [address] [address] Vladimir Betts NEUT # 7.7 103/ul Critically high 1.4-6.5 [facility] Comment on above: Performed By: #### CBC #### [facility] [address] [place] [address] Dr. Vladimir Betts Neutrophils/100 WBC (Bld) 65.7 % Normal 43.0-75.0 [facility] Comment on above: Performed By: #### CBC #### [facility] [address] [place] [address] Dr. Vladimir Betts Platelet mean volume (Bld) [Entitic vol] 9.0 fL Critically low 9.5-13.5 [facility] Comment on above: Performed By: #### CBC #### [facility] [address] [place] [address] Dr. Vladimir Betts PLT 276 103/ul Normal 150-450 [facility] Comment on above: Performed By: #### CBC #### [facility] [address] [place] [address] Dr. Vladimir Betts RBC 4.43 106/ul Critically low 4.70-6.10 [facility] Comment on above: Performed By: #### CBC #### [facility] [address] [place] [address] Dr. Vladimir Betts WBC 11.7 103/ul Critically high 4.0-11.0 [facility] Comment on above: Performed By: #### CBC #### [facility] [address] [address] ABD/PELV W CONon 01-17-[address] ABD/PELV W CON CT ABD/PELV W CON: 01/16/2022 3:02 AM EST CLINICAL HISTORY: 26 years old Male with NAUSEA WITH VOMITING, UNSPECIFIED. TECHNIQUE: Axial CT images through the abdomen and pelvis are obtained after the intravenous administration of contrast. Coronal and sagittal reformations are also obtained. Oral contrast was also administered. Dose reduction techniques were achieved by using automated exposure control and/or adjustment of mA and/or kV according to patient size and/or use of iterative reconstruction technique. COMPARISON: CT abdomen pelvis 05/17/2017. FINDINGS: The lung bases are clear with no dependent infiltrate or effusion. The liver, gallbladder, spleen, pancreas and bilateral adrenal glands are unremarkable. The bilateral kidneys demonstrate normal enhancement without hydronephrosis. The bilateral ureters demonstrate no gross abnormality or obstruction. The stomach and small bowel are unremarkable. The appendix is visualized without inflammatory change. The colon is unremarkable. The bladder appears unremarkable. There is no evidence of aortic aneurysm present. No enlarged lymph nodes are seen. No free air or free fluid is seen. The prostate gland is within normal limits. The osseous structures appear unremarkable. IMPRESSION: No acute intra-abdominal inflammatory process identified. Electronically authenticated by: MEGHANN VELASQUEZ Date: 2022-01-16 06:59 Normal [facility] ER URINE PROFILEon 2 Bilirubin Ql (U) Negative Normal NEGATIVE [facility] Comment on above: Performed By: #### ERUR ####[facility] [address] [address]DrShalonda Betts Clarity (U) CLEAR Normal CLEAR [facility] Comment on above: Performed By: #### ERUR ####[facility] [address] [id number] Betts Color (U) LT. YELLOW Normal YELLOW [facility] Comment on above: Performed By: #### ERUR ####[facility] [address] [id number] Betts ERUAHD A micrscopic examina tion will be performed if indicated. Normal [facility] Comment on above: Performed By: #### ERUR ####[facility] [address] [address]Dr. Vladimir Betts Glucose Ql (U) Negative Normal NEGATIVE [facility] Comment on above: Performed By: #### ERUR ####[facility] [address] [address]Dr. Vladimir Betts Hemoglobin Ql (U) Negative Normal NEGATIVE [facility] Comment on above: Performed By: #### ERUR ####[facility] [address] [address]Dr. Vladimir Betts Ketones Ql (U) Negative Normal NEGATIVE [facility] Comment on above: Performed By: #### ERUR ####[facility] [address] [address]Dr. Vladimir Betts LEUKOCYTES Negative Normal NEGATIVE [facility] Comment on above: Performed By: #### ERUR ####[facility] [address] [address]Dr. Vladimir Betts Nitrite Ql (U) Negative Normal NEGATIVE [facility] Comment on above: Performed By: #### ERUR ####[facility] [address] [address]Dr. Vladimir Betts pH (U) 6.5 [pH] Normal 5-9 [facility] Comment on above: Performed By: #### ERUR ####[facility] [address] [address]Dr. Vladimir Betts SPEC GRAVITY 1.015 Normal 1.005-<=1.02 5 [facility] Comment on above: Performed By: #### ERUR ####[facility] [address] [address]Dr. Vladimir Betts UA PROTEIN Negative Normal NEGATIVE/ TRACE [facility] Comment on above: Performed By: #### ERUR ####[facility] [address] [address]Dr. Vladimir Betts UR MICRO IND NOT INDICATED Normal [facility] Comment on above: Performed By: #### ERUR ####[facility] pital [address] [address]Dr. Vladimir Betts Urobilinogen Qn (U) 0.2 {Olivia'U}/dL Normal 0.2 - 1.0 [facility] Comment on above: Performed By: #### ERUR ####[facility] pital [address] [address]Dr. Vladimir Betts LIPASEon 01-16-2022 Lipase [Catalytic activity/Vol] 69.0 U/L Critically low 73.0-393.0 [facility] Comment on above: Performed By: #### LIPA, CMP, KASANDRA #### [facility] [address] [address] [address] Vladimir Betts PROF 14(COMP METB)on 022 Albumin [Mass/Vol] 4.1 g/dL Normal 3.4-5.0 [facility] Comment on above: Performed By: #### LIPA, CMP, KASANDRA #### [facility] [address] [place] [address] Dr. Vladimir Betts Albumin/Globuli n [Mass ratio] 1.1 {ratio} Normal [facility] Comment on above: Performed By: #### LIPA, CMP, KASANDRA #### [facility] [address] [place] [address] Dr. Vladimir Betts ALP [Catalytic activity/Vol] 77 U/L Normal 46-116 [facility] Comment on above: Performed By: #### LIPA, CMP, KASANDRA #### [facility] [address] [place] [address] Dr. Vladimir Betts ALT [Catalytic activity/Vol] 33 U/L Normal 16-63 [facility] Comment on above: Performed By: #### LIPA, CMP, KASANDRA #### [facility] [address] [place] [address] Dr. Vladimir Betts Anion gap [Moles/Vol] 7.5 mmol/L Normal [facility] Comment on above: Performed By: #### LIPA, CMP, KASANDRA #### [facility] [address] [address] [address] Vladimir Betts AST [Catalytic activity/Vol] 29 U/L Normal 15-37 [facility] Comment on above: Performed By: #### LIPA, CMP, KASANDRA #### [facility] [address] [address] [address] Vladimir Betts Bilirubin [Mass/Vol] 0.5 mg/dL Normal 0.2-1.0 [facility] Comment on above: Performed By: #### LIPA, CMP, KASANDRA #### [facility] [address] [address] [address] Vladimir Betts Calcium [Mass/Vol] 9.3 mg/dL Normal 8.5-10.1 [facility] Comment on above: Performed By: #### LIPA, CMP, KASANDRA #### [facility] [address] [place] [address] Dr. Vladimir Betts Chloride [Moles/Vol] 98 mmol/L Normal 98-107 [facility] Comment on above: Performed By: #### LIPA, CMP, KASANDRA #### [facility] [address] [place] [address] Dr. Vladimir Betts CO2 [Moles/Vol] 28.4 mmol/L Normal 21.0-32.0 [facility] Comment on above: Performed By: #### LIPA, CMP, KASANDRA #### [facility] [address] [place] [address] Dr. Vladimir Betts Creatinine [Mass/Vol] 0.95 mg/dL Normal 0.70-1.30 [facility] Comment on above: Performed By: #### LIPA, CMP, KASANDRA #### [facility] [address] [place] [address] Dr. Vladimir Betts EGFR-AF ENGLISH >60 Normal >=60 [facility] Comment on above: Performed By: #### LIPA, CMP, KASANDRA #### [facility] [address] [place] [address] Dr. Vladimir Betts EGFR-NON AF ENGLISH >60 Normal >=60 [facility] Comment on above: Performed By: #### LIPA, CMP, KASANDRA #### [facility] [address] [address] [address] Vladimir Betts Globulin (S) [Mass/Vol] 3.9 g/dL Normal [facility] Comment on above: Performed By: #### LIPA, CMP, KASANDRA #### [facility] [address] [address] [address] Vladimir Betts Glucose [Mass/Vol] 99 mg/dL Normal 74-106 [facility] Comment on above: Performed By: #### LIPA, CMP, KASANDRA #### [facility] [address] [address] [address] Vladimir Betts Potassium [Moles/Vol] 3.9 mmol/L Normal 3.5-5.1 [facility] Comment on above: Performed By: #### LIPA, CMP, KASANDRA #### [facility] [address] [place] [address] Dr. Vladiimr Betts Protein [Mass/Vol] 8.0 g/dL Normal 6.4-8.2 [facility] Comment on above: Performed By: #### LIPA, CMP, KASANDRA #### [facility] [address] [address] [address] Vladimir Betts Sodium [Moles/Vol] 130 mmol/L Critically low 136-145 [facility] Comment on above: Performed By: #### LIPA, CMP, KASANDRA #### [facility] [address] [address] [address] Vladimir Betts Urea nitrogen [Mass/Vol] 15.0 mg/dL Normal 7.0-18.0 [facility] Comment on above: Performed By: #### LIPA, CMP, KASANDRA #### [facility] [address] [address] [address] Vladimir Betts Urea nitrogen/Creati nine [Mass ratio] 15.8 mg/mg Normal [facility] Comment on above: Performed By: #### LIPA, CMP, KASANDRA #### [facility] [address] [address] [address] Vladimir Betts Covid-19 PCR ([facility])on 06-13 SARS-CoV-2 (COVID-19) RNA LUANN+probe Ql (Unsp spec) Not detected Normal NOT DETECTED [facility] Comment on above: Result Comment: This test is not yet leti roved or cleared by the [place] FDA. When there are no FDA-approved or cleared tests available, and other criteria are met, FDA can make tests available under an emergency access mechanism called an Emergency Use Authorization (EUA). The EUA for this test is supported by the [employer] of Health and Human Service's (HHS's) declaration that circumstances exist to justify the emergency use of in vitro diagnostics for the detection and/or diagnosis of the virus that causes COVID-19. This EUA will remain in effect (meaning this test can be used) for the duration of the COVID-19 declaration justifying emergency of IVDs, unless it is terminated or revoked by FDA (after which the test may no longer be used). When diagnostic testing is negative, the possibility of a false negative should be considered in the context of a patient's recent exposures and the presence of clinical signs and symptoms consistent with SARS-CoV-2. Performed By: #### C VDTB #### [facility] [address] [address] [address] Vladimir Betts AFP (TUMOR MARKER)on 022 AFP, Serum, Tumor Marker 1.6 ng/mL Normal 0.0-5.7 [facility] Comment on above: Result Comment: [employer] ochemiluminescence Immunoassay (ECLIA) . Please note reference interval change . Values obtained with different assay methods or kits cannot be used interchangeably. Results cannot be interpreted as absolute evidence of the presence or absence of malignant disease. . This test is not interpretable in females. Performed By: #### A FP. #### [facility] [address] [address] [address] Vladimir Betts HCG QUANT TUMOR MARKERon HCG QNT TUMOR MARKER <1 Normal 0-3 [facility] Comment on above: Result Comment: [employer] Electr ochemiluminescence Immunoassay (ECLIA) . The [employer] HCG + beta assay recognizes the holo-hormone, human chorionic gonadotropin (hCG), nicked forms of hCG, the beta-core fragment and the free beta-subunit in human serum and plasma. . Results obtained with different test methods or kits cannot be used interchangeably. This assay is intended for the early detection of . The result should not be used for treatment or for diagnostic purposes without confirmation of the diagnosis by another medically established diagnostic product or procedure. . This test was developed and its performance characteristics determined by [employer]. It has not been cleared or approved by the Food and Drug Administration for use as a tumor marker. . This test is not interpretable as a tumor marker in females. Performed By: #### H CGTMOR #### [facility] [address] [place], [place] [address] Dr. Vladimir Betts LDHon 05-18-2021 LDH 143 U/L Normal 122-222 [facility] Comment on above: Performed By: #### LDH #### [facility] [address] [place], [place] [address] Dr. Vladimir Betts US SCROTUMon 05-15-2021 US SCROTUM EXAM: US SCROTUM HISTORY: 25-year-old male with mass of the left testicle for a few months, increasing in size, with occasional pain COMPARISON: None. TECHNIQUE: Samuel scale imaging as well as color and duplex Doppler ultrasound examination of the scrotum and its contents were performed. FINDINGS: Duplex Doppler examination shows normal and symmetric intratesticular blood flow bilaterally. The right testis measures 3.7 x 2.7 x 1.6 cm. The testis is normal in size and echotexture without focal abnormality. There is a small right epididymal head cyst versus spermatocele. The right paratesticular tissues are otherwise normal. There is no right varicocele. There is no significant right hydrocele. The left testis measures 3.5 x 2.1 x 1.4 cm. There is a lower pole anechoic subcentimeter cyst, with adjacent punctate hypoechoic focus. The testis is otherwise normal in size and echotexture without focal abnormality. There is a subcentimeter left epididymal head cyst versus spermatocele. The left paratesticular tissues are otherwise normal. There is a left varicocele with veins measuring up to 4 mm. There is no significant left hydrocele. The scrotal skin thickness is normal. IMPRESSION: 1. Left-sided varicocele. 2. Findings within the lower pole the left testicle likely represent adjacent tiny nonspecific testicular cysts, likely benign. Given patient's symptoms and family history, consider follow-up testicular ultrasound in 3 months to document stability. Electronically authenticated by: YUN MARK Date: 2021-05-15 11:31 Normal [facility] Vital Signs Date Time Vital Sign Value Performing Clinician Facility 06-08-2022 12:10-0400 Body height 172.72 cm Qi Charisma Other [facility] Other 06-08-2022 12:10-0400 Body mass index (BMI) [Ratio] 23.41 kg/m2 [facility] Other 06-08-2022 12:10-0400 Body temperature 98.5 [degF] Qi Sandoval[facility] Other [facility] Other 06-08-2022 12:10-0400 Body weight 69.85 kg Qi Sandovalmond Other [facility] Other 06-08-2022 12:10-0400 Respiratory rate 18 /min Qi Sandovalmond Other [facility] Other 06-08-2022 12:10-0400 SaO2% (BldA) [Mass fraction] 98 % Qi [facility] Other Encounters Encounter Date Encounter Type Care Provider Facility Start: 06-08-2022 End: 06-08-2022 ambulatory Qi [facility] Other Start: 06-08-2022 Office outpatient ne w 20 minutes [facility] Start: 01-16-2022 End: 01-16-[address] TYRONE MCGARRY Facility:[facility] Start: 07-09-2021 End: 07-09-2021 Patient encounter procedure Fernando SMITH [facility] Start: 06-23-2021 End: 06-23-2021 ambulatory QI MEDINA Facility:[facility] Start: 05-18-2021 End: 05-19-[address] TYRONE MCGARRY Facility:[facility] Start: 05-14-2021 End: 05-15-[address] TYRONE MCGARRY Facility:[facility] Payers Date Payer Category Payer Unknown [id number] 2.16.84 [id number] 1994 Unknown [id number] 2.16.84 [id number] 1994 Unknown [id number] 2.16.84 [id number] 1994 Unknown [id number] 2.16.84 [id number] 1959 Unknown [id number] Medicaid [id number] Social History Date Type Detail Facility Tobacco smoking status Unknown if ever sm oked [facility] Sex Assigned At Male [facility] Evaluation note 06-08-2022 Note Date & Type Note Facility 06-08-2022 Evaluation note Encounter Date Diagnosis Assessment Notes May, Contact with and (suspected) exposure to covid-19 (ICD-10 - Z20.822) May, Viral gastritis (ICD-10 - K29.70) [facility] home care material was printed Drink plenty fluids, get plenty of rest. Take Tylenol or Motrin as needed for aches pains or fevers. Follow-up with your family physician if no improvement by tomorrow. Go to the ER for worsening symptoms or concerns [facility] Other Hospital Discharge instructions 05-25-2021 Note Date & Type Note Facility 05-25-2021 Hospital Discharg e instructions Follow Up Care 05/25/2021 12:37:18 With:LUIS ROJAS, Fernando Dueñas, URL Address: [facility] [address], [place] [address]- When: Unknown [facility] Evaluation + Plan note Note Date & Type Note Facility Evaluation + Plan note No data available for this section [facility] History general Narrative - Reported Note Date & Type Note Facility History general Narrative - Reported Type Medical History asthma Medical History depression Medical History PTSD [facility] Other Summary Purpose Family History No Family History Records Found Advance Directives No Advanced Directives Records Found Additional Source Comments (unrecognized sect ion and content) No Status Records Found INFORMATION SOURCE (unrecogn ized section and content) DATE CREATED AUTHOR 01/21/2022 [facility] REASON FOR VISIT (unrecogniz ed section and content) CONTACT WITH [employer] FOR RECORDS PERTAINING TO PATIENTS WHO ARE OR HAVE BEEN ENROLLED IN A CHEMICAL DEPENDENCY/SUBSTANCEABUSE PROGRAM, SOME INFORMATION MAY BE OMITTED. This clinical summary was aggregated from multiple sources. Caution should be exercised in using it in the provision of clinical care. This summary normalizes information from multiple sources, and as a consequence, information in this document may materially change the coding, format and clinical context of patient data. In addition, data may be omitted in some cases. CLINICAL DECISIONS SHOULD BE BASED ON THE PRIMARY CLINICAL RECORDS. [facility] provides no warranty or guarantee of the accuracy or completeness of information in this document.
== END 2024-10-22 15:12 | disposition home or self-care (01) ==
PROVIDERS: PCP Family Medicine; Visit Provider Family Medicine
DX: M25.562 Pain in left knee (principal)
CPT/HCPCS: 73080; 73090; 73110